=== PATIENT | male | born 1970 | race Caucasian/White ===

== ENCOUNTER 2024-03-09 14:17 | Emergency (ER) | payer BC ==
[2024-03-09] VITALS (13 sets, daily range): BP systolic 118–189; BP diastolic 81–133
[~2024-03-09] VITALS: Ht 172.7 cm; Wt 79.3 kg
[~2024-03-09 14:17] MED LIST: HYDROCHLOROT25 MG OR; LORTAB5 OR; NO HOME MEDS
[2024-03-09] MEDS ORDERED: LABETALOL HCL 20 MG/ 4 ML CARTRG IV ONE (14:45)
[2024-03-09 14:54] LABS: BASO% 0.3 % (0-3); EOS% 0.4 % (0-8); HEMOGLOBIN 16.2 g/dl (14.0-18.0); IMMATURE GRANULOCYTES 0.1 % (0.0-5.0); MEAN CELL VOLUME 94.1 fL CALC (80.0-100.0); MEAN CORPUSCULAR HGB 31.8 pG CALC (26.0-32.0); MEAN CORPUSCULAR HGB CONC 33.8 g/dL CAL (32.0-36.0); MONO% 8.5 % (2-13); NEUT# 4.6 thou/uL (1.82-7.42); NEUT% 60.7 % (42-76); RED BLOOD COUNT 5.1 mill/uL (4.70-6.10); RED CELL DISTRI WIDTH 11.7 % (11.5-15.5)
[2024-03-09 15:05] LABS: ALBUMIN 5.2 g/dL (3.2-5.0); ALKALINE PHOSPHATASE 79 u/l (38-126); ANION GAP 19 (6-22 (CALC)); BUN 13 mg/dL (9-20); BUN/CREATININE RATIO 10 (12-20 (CALC)); CARBON DIOXIDE 26 mmol/l (22-30); CHLORIDE 101 mmol/l (95-108); CREATININE 1.3 mg/dL (0.7-1.3); ESTIMATED GFR 66 ML/MIN (>=90 (CALC)); POTASSIUM 4.1 mmol/l (3.5-5.1); SGOT/AST 44 u/l (17-59); SODIUM 141 mmol/l (137-146); TOTAL PROTEIN 8.8 g/dL (6.3-8.2)
[2024-03-09 15:15] LABS: BILIRUBIN, TOTAL 1.4 mg/dL (0.2-1.3)
[2024-03-09 15:23] LABS: MAGNESIUM 2.2 mg/dL (1.6-2.3)
[2024-03-09] MEDS ORDERED: COZAAR50 MG PO (16:46)
[2024-03-09] MEDS ORDERED: LOSARTAN Potassium 50 MG/TAB PO ONE (16:50)
== END 2024-03-09 17:33 | disposition home or self-care (01) | DRG 305 ==
LOC: ED 14:17
PROVIDERS: Nurse Practitioner
DX: I10 Essential (primary) hypertension (principal)

== ENCOUNTER 2024-06-05 07:09 | Day surgery (SDC) | payer BC ==
[~2024-06-05] VITALS: Ht 172.7 cm; Wt 81.6 kg
[~2024-06-05 07:09] MED LIST changes: +COZAAR50 MG PO; +LOSARTAN POTASS25 MG PO
[2024-06-05] MEDS ORDERED: SODIUM CHLORIDE 0.9% 1,000 ML IV ONE (07:11)
[2024-06-05] MEDS ORDERED: FAMOTIDINE 10MG/ML 2ML SDV IV ONE (07:19)
[2024-06-05] MEDS ORDERED: STERILE WATER FOR IRRIGATION 1,000 ML BTL IR ONE (07:40)
[2024-06-05 08:54] VITALS: BP 112/72
[2024-06-05] MEDS ORDERED: LIDOCAINE HCL 2% 2ML SDV IV ONE (10:22)
[2024-06-05] MEDS ORDERED: PROPOFOL 200 MG/20 ML VIAL IV ONE (10:22)
== END 2024-06-05 08:50 | disposition home or self-care (01) | DRG 951 ==
LOC: ENDO 07:09
PROVIDERS: ATTEND Surgery
PROC: 0DJD8ZZ Inspection of Lower Intestinal Tract, Via Natural or Artificial Opening Endoscopic (ICD-10-PCS; principal; 2024-06-05)
DX: Z12.11 Encounter for screening for malignant neoplasm of colon (principal); K57.30 Diverticulosis of large intestine without perforation or abscess without bleeding; K64.8 Other hemorrhoids; I10 Essential (primary) hypertension; Z01.818 Encounter for other preprocedural examination; Z11.52 Encounter for screening for COVID-19; R01.1 Cardiac murmur, unspecified; Z98.890 Other specified postprocedural states